=== PATIENT | female | born 1935 | race American Indian/Alaskan Native ===

== ENCOUNTER 2017-02-17 11:59 | Outpatient (CLI) | payer MEDICARE ==
--- NOTE | 2017-02-18 08:24 | Mammography Report ---
BILATERAL DIGITAL SCREENING MAMMOGRAM with CAD: 02/17/17 11:59:00 CLINICAL: Routine screening. COMPARISON:01/27/14 FINDINGS: The breasts are predominant fatty with a few bilaterals scattered fibroglandular densities. Stable bilateral retinal asymmetries. A left upper outer biopsy clip. No mass, architectural distortion or suspicious calcifications. IMPRESSION: No mammographic evidence of malignancy. BI-RADS CATEGORY: 2 -- Benign RECOMMENDATION: Routine mammographic screening in one year. COMMENT: Patient follow-up letters are generated by our [employer] application.
== END 2017-02-17 12:00 | disposition home or self-care (01) ==
LOC: SPVWC 11:59
PROVIDERS: ATTEND Internal Medicine
DX: Z12.31 Encounter for screening mammogram for malignant neoplasm of breast (principal)
CPT/HCPCS: 77067; G0202

== ENCOUNTER 2019-11-08 08:22 | Outpatient (CLI) | payer MEDICARE ==
--- NOTE | 2019-11-08 14:00 | Mammography Report ---
DIGITAL SCREENING MAMMOGRAM WITH CAD, 11/08/2019 INDICATION: Routine screening mammography. TECHNIQUE: Digital bilateral 2D mammography was obtained in the craniocaudal and mediolateral obliq ue projections. This examination was interpreted with the benefit of Computer-Aided Detection analysi s. COMPARISON: 09/29/2018 and 02/14/2016 FINDINGS: Breast Density: The breasts are heterogeneously dense, which may obscure small masses. There is no evidence of dominant mass, suspicious calcifications or architectural distortion in eithe r breast. A left outer biopsy clip. Stable benign calcifications. IMPRESSION: No mammographic evidence of malignancy. Follow up recommendation: Routine yearly BI-RADS Category 2: Benign. A "normal" or negative report should not discourage follow up or biopsy of a clinically significant f inding. A written summary of these findings will be mailed to the patient. The patient will be entered into a mammography reporting system which will generate a reminder letter for the patient's next appointmen t at the appropriate interval. The [employer] recommends yearly mammograms starting at age 40 and continuing as l rashawn as a woman is in good health. Breast MRI is recommended for women with an approximate 20-25% or greater lifetime risk of breast cancer, including women with a strong family history of breast or ova jessica cancer or who have been treated for Hodgkin's disease. Signer Name: Jose Coughlin MD Signed: 11/08/2019 1:56 PM Workstation Name: [id number]
== END 2019-11-08 08:23 | disposition home or self-care (01) ==
LOC: SPVWC 08:22
PROVIDERS: ATTEND Internal Medicine
DX: Z12.31 Encounter for screening mammogram for malignant neoplasm of breast (principal)
CPT/HCPCS: 77067